=== PATIENT | male | born 1955 | race African-American/Black ===

== ENCOUNTER 2019-05-13 19:51 | Emergency (ER) | payer MEDICAID ==
[~2019-05-13] VITALS: Ht 181.6 cm; Wt 79.5 kg
[2019-05-13] MEDS ORDERED: HYDR12.530 PO (20:09)
[2019-05-13] MEDS ORDERED: ATOR10TA69 PO (20:09)
[2019-05-13 21:35] VITALS: BP 147/82
== END 2019-05-13 21:40 | disposition home or self-care (01) ==
LOC: EMS 19:51
DX: Z00.00 Encounter for general adult medical examination without abnormal findings (principal); I10 Essential (primary) hypertension; J45.909 Unspecified asthma, uncomplicated; F17.210 Nicotine dependence, cigarettes, uncomplicated; Z79.899 Other long term (current) drug therapy

== ENCOUNTER 2022-02-04 18:05 | Emergency (ER) | payer MEDICAID ==
[~2022-02-04] VITALS: Ht 180.3 cm; Wt 62.0 kg
[~2022-02-04 18:05] MED LIST: ATOR10TA69 PO; HYDR12.530 PO
[2022-02-04] MEDS ORDERED: CloNIDine HCL 0.2 MG TABLET PO ONE (19:30)
[2022-02-04 19:58] LABS: BASOPHILS % (AUTO) 0.4 % (0.0-2.0); EOSINOPHILS % (AUTO) 0.8 % (1.0-6.0); HEMOGLOBIN 14.3 g/dL (13.5-17.5); LYMPHOCYTES # (AUTO) 1.3 K/uL (1.0-4.8); LYMPHOCYTES % (AUTO) 17.7 % (22.0-44.0); MEAN CORPUSCULAR HEMOGLOBIN 28.1 pg (26.0-34.0); MEAN CORPUSCULAR HGB CONC 33.2 G/dL (31.0-37.0); MEAN CORPUSCULAR VOLUME 85 fL (80-100); MONOCYTES # (AUTO) 0.8 K/uL (0.1-1.0); MONOCYTES % (AUTO) 10.7 % (2.0-9.0); NEUTROPHILS # (AUTO) 5.3 K/uL (1.8-7.7); NEUTROPHILS % (AUTO) 70.4 % (40.0-70.0); PLATELET COUNT (AUTO) 238 K/uL (150-450); RED BLOOD CELL COUNT(AUTO) 5.09 MIL/uL (4.50-5.90); RED CELL DISTRIBUTION WIDTH 12.7 % (11.5-14.5)
[2022-02-04 20:03] LABS: ANION GAP 3 mmol/L (8-16); CALCIUM, TOTAL 9.7 mg/dL (8.8-10.5); CARBON DIOXIDE 32 mmol/L (22-29); CHLORIDE 102 mmol/L (98-107); CREATININE 1.12 mg/dL (0.60-1.30); GLUCOSE,RANDOM 102 mg/dL (70-110); POTASSIUM 3.6 mmol/L (3.5-5.1); SODIUM SERUM 137 mmol/L (136-145); UREA NITROGEN, BLOOD 11 mg/dL (7-18)
[2022-02-04 20:06] LABS: GLOMERULAR FILTR. RATE CALC > 60 mL/min (>60)
[2022-02-04] MEDS ORDERED: AMLO-258 PO (20:19)
[2022-02-04 21:57] VITALS: BP 216/110
== END 2022-02-04 22:43 | disposition home or self-care (01) ==
LOC: EMS 18:13
DX: I10 Essential (primary) hypertension (principal); F15.10 Other stimulant abuse, uncomplicated; R53.1 Weakness; F17.290 Nicotine dependence, other tobacco product, uncomplicated; Z79.899 Other long term (current) drug therapy
CPT/HCPCS: 71045; 80048; 85025; 93005; 99285; 36415-L1; 36415-TC

== ENCOUNTER 2022-04-26 17:22 | Emergency (ER) | payer MEDICAID ==
[~2022-04-26] VITALS: Ht 183.5 cm; Wt 68.2 kg
[~2022-04-26 17:22] MED LIST changes: +AMLO-258 PO
[2022-04-26] MEDS ORDERED: CYCLOBENZAPRINE HCL 10 MG TABLET PO ONE (19:30)
[2022-04-26] MEDS ORDERED: AmLODIPine BESYLATE 10 MG TABLET PO ONE (19:30)
[2022-04-26] MEDS ORDERED: KETOROLAC TROMETHAMINE 30 MG/ML VIAL IM ONE (19:30)
[2022-04-26] MEDS ORDERED: LIDOCAINE 5% TRANSDERMAL PATCH TD ONE (19:30)
[2022-04-26] MEDS ORDERED: AMLO-258 PO (19:31)
[2022-04-26 19:49] LABS: BASOPHILS % (AUTO) 0.5 % (0.0-2.0); EOSINOPHILS % (AUTO) 0.8 % (1.0-6.0); HEMATOCRIT 44.2 % (41-53); HEMOGLOBIN 14.7 g/dL (13.5-17.5); LYMPHOCYTES # (AUTO) 1.5 K/uL (1.0-4.8); LYMPHOCYTES % (AUTO) 19.5 % (22.0-44.0); MEAN CORPUSCULAR HEMOGLOBIN 28.5 pg (26.0-34.0); MEAN CORPUSCULAR HGB CONC 33.4 G/dL (31.0-37.0); MEAN CORPUSCULAR VOLUME 85 fL (80-100); MONOCYTES # (AUTO) 0.7 K/uL (0.1-1.0); MONOCYTES % (AUTO) 8.7 % (2.0-9.0); NEUTROPHILS # (AUTO) 5.3 K/uL (1.8-7.7); NEUTROPHILS % (AUTO) 70.5 % (40.0-70.0); PLATELET COUNT (AUTO) 210 K/uL (150-450); RED BLOOD CELL COUNT(AUTO) 5.18 MIL/uL (4.50-5.90); RED CELL DISTRIBUTION WIDTH 13.4 % (11.5-14.5)
[2022-04-26 19:59] LABS: ANION GAP 4 mmol/L (8-16); CALCIUM, TOTAL 9.4 mg/dL (8.8-10.5); CARBON DIOXIDE 32 mmol/L (22-29); CREATININE 1.22 mg/dL (0.60-1.30); GLUCOSE,RANDOM 141 mg/dL (70-110); POTASSIUM 3.7 mmol/L (3.5-5.1); SODIUM SERUM 140 mmol/L (136-145); UREA NITROGEN, BLOOD 12 mg/dL (7-18)
[2022-04-26 20:00] LABS: GLOMERULAR FILTR. RATE CALC > 60 mL/min (>60)
[2022-04-26 20:01] LABS: CHLORIDE 104 mmol/L (98-107)
[2022-04-26] MEDS ORDERED: CYCL-448 PO (20:49)
[2022-04-26] MEDS ORDERED: IBUP-2070 PO (20:49)
[2022-04-26 20:58] VITALS: BP 189/99
== END 2022-04-26 21:08 | disposition home or self-care (01) ==
LOC: EMS 17:25
DX: I10 Essential (primary) hypertension (principal); F15.10 Other stimulant abuse, uncomplicated; F17.210 Nicotine dependence, cigarettes, uncomplicated; M54.9 Dorsalgia, unspecified; G89.29 Other chronic pain; G62.9 Polyneuropathy, unspecified; R20.0 Anesthesia of skin
CPT/HCPCS: 99284; 80048; 85025; 36415; 96372; J1885